=== PATIENT | male | born 1960 ===

== ENCOUNTER 2019-10-16 15:45 | Emergency (ER) | payer BC, OTHER ==
[~2019-10-16] VITALS: Ht 175.3 cm; Wt 91.4 kg
[2019-10-16] MEDS ORDERED: HYDROcodone/APAP 5/325 TABLET PO STA (15:56)
[2019-10-16] MEDS ORDERED: KETOROLAC 30 MG/1 ML IM ONE (16:00)
[2019-10-16] MEDS ORDERED: CYCLOBENZAPRINE 10 MG TABLET PO ONE (16:00)
[2019-10-16 16:33] LABS: BASOPHILS # (AUTO) 0.03 x10^3/uL (0-0.1); BASOPHILS % (AUTO) 0 % (0-1); EOSINOPHILS # (AUTO) 0.16 x10^3/uL (0-0.4); EOSINOPHILS % (AUTO) 2 % (1-7); LYMPHOCYTES # (AUTO) 1.72 x10^3/uL (1-3.4); LYMPHOCYTES % (AUTO) 20 % (22-44); MD NO; MEAN CORPUSCULAR HEMOGLOBIN 26.3 pg (27.5-34.5); MEAN CORPUSCULAR HGB CONC 32.7 g/dL (33.2-36.2); MEAN CORPUSCULAR VOLUME 80.5 fL (81-97); MEAN PLATELET VOLUME 7.9 fL (7.4-10.4); MONOCYTES % (AUTO) 5 % (2-9); NEUTROPHILS # (AUTO) 6.19 x10^3/uL (1.8-6.8); NEUTROPHILS % (AUTO) 73 % (42-75); PLATELET COUNT 253 x10^3/uL (130-400); RED BLOOD COUNT 5.54 x10^6/uL (4.38-5.82)
[2019-10-16 16:44] LABS: ALBUMIN 3.6 g/dL (3.4-5.0); ANION GAP 7 mmol/L (5-15); CHLORIDE 107 mmol/L (98-107)
[2019-10-16 16:45] LABS: CREATININE 0.83 mg/dL (0.7-1.3)
--- NOTE | 2019-10-16 17:27 | NUR ---
COAL DIGGER: PT TO ROOM FROM [facility]. PT PROVIDED WITH URINAL FOR URINE SPECIMAN.
[2019-10-16] MEDS ORDERED: CYCLOBENZAPRINE 10 MG TABLET ONE (17:30)
[2019-10-16] MEDS ORDERED: KETOROLAC 30 MG/1 ML ONE (17:31)
[2019-10-16] MEDS ORDERED: HYDROcodone/APAP 5/325 TABLET ONE (17:31)
--- NOTE | 2019-10-16 18:21 | NUR ---
Urine sample collected and sent to lab. Patient resting comfortably in [facility], significant other at bedside. No further needs at this time. Addendum: 10/16/19 at 1842 by [email or web address] Patient reports his pain level is now a 4/10 with medication, down from a 5/10.
[2019-10-16 18:29] LABS: MICROSCOPIC NOT IND
--- NOTE | 2019-10-16 18:54 | NUR ---
MARQUISE, RN assuming care, SBAR exchanged at patient's bedside.
--- NOTE | 2019-10-16 18:54 | NUR ---
miguel (rn) is assuming care of this pt at this time. sbar report was exchanged at the bedside.
--- NOTE | 2019-10-16 19:02 | NUR ---
Report received from SILVIO Fountain and SILVIO Jaramillo. This RN to assume care.
[2019-10-16 20:00] VITALS: BP 120/83
--- NOTE | 2019-10-16 20:00 | NUR ---
Discharge instructions given. All questions and concerns addressed. Patient ambulatory with a steady gait. Belongings with patient.
== END 2019-10-16 20:05 ==
LOC: ED 18:26
DX: S39.012A Strain of muscle, fascia and tendon of lower back, initial encounter (principal); S33.5XXA Sprain of ligaments of lumbar spine, initial encounter; E11.9 Type 2 diabetes mellitus without complications; I10 Essential (primary) hypertension; E78.5 Hyperlipidemia, unspecified; Z87.891 Personal history of nicotine dependence; X50.0XXA Overexertion from strenuous movement or load, initial encounter; Y93.89 Activity, other specified; Y92.89 Other specified places as the place of occurrence of the external cause; Y99.8 Other external cause status
CPT/HCPCS: 36415; 72110; 80048; 81003; 82040; 85025; 96372; 99284; J1885; 99285